=== PATIENT | male | born 1955 | race Caucasian/White ===

== ENCOUNTER 2016-05-12 16:26 | Inpatient (IN) | payer OTHER ==
[2016-05-12] MEDS ORDERED: TYLENOL 325 MG PO STA (17:06)
[2016-05-12] MEDS ORDERED: Zofran 4 MG/2 ML VIAL IV STA (17:06)
[2016-05-12] MEDS ORDERED: Sodium Chloride 0.9% 1000 ML 1,000 ML IV STA (17:06)
[2016-05-12] MEDS ORDERED: TORAdol 30 mg Injection IV ONE (17:11)
[2016-05-12] MEDS ORDERED: DILAUDID 1 MG/ML INJECTION IV ONE (17:11)
[2016-05-12] MEDS ORDERED: DILAUDID 1 MG/ML INJECTION ONE (17:14)
[2016-05-12] MEDS ORDERED: Zofran 4 MG/2 ML VIAL ONE (17:14)
[2016-05-12] MEDS ORDERED: Sodium Chloride 0.9% 1000 ML 1,000 ML ONE (17:14)
[2016-05-12] MEDS ORDERED: TORAdol 30 mg Injection ONE (17:14)
[2016-05-12] MEDS ORDERED: TYLENOL 325 MG ONE (17:14)
--- NOTE | 2016-05-12 17:16 | ERPHSYRPT ---
- History of Present Illness Time Seen by Provider: 05/12/16 16:40 Historian: patient Exam Limitations: no limitations Patient Subjective Stated Complaint: lower back pain since 899 Triage Nursing Assessment: states has had lower back pain since 899. pain and urgency with urination. finished zpack for upper resp s/s on tuesday. skin warm. moist oral membranes. yellow productive cough. Timing/Duration: today Quality: sharpness Abdominal Pain Onset Location: flank Pain Radiation: no radiation Severity of Pain-Max: severe Severity of Pain-Current: severe Modifying Factors: Improves With: nothing Associated Symptoms: other (dysuria) Allergies/Adverse Reactions: No Known Drug Allergies Allergy (Unverified 05/12/16 16:32) Home Medications: Amlodipine Besylate 5 mg [Norvasc 5 mg] 5 mg PO DAILY 08/02/14 [History] Benazepril HCl 20 mg PO DAILY 08/02/14 [History] Ezetimibe 10 mg [Zetia 10 MG] 10 mg PO DAILY 08/02/14 [History] Testosterone Cypionate [Depo-Testosterone] 100 mg IM WEEKLY 08/02/14 [History] Hx Tetanus, Diphtheria Vaccination/Date Given: Yes Hx Influenza Vaccination/Date Given: Yes Hx Pneumococcal Vaccination/Date Given: No Immunizations Up to Date: Yes - Review of Systems Constitutional: No Symptoms Eyes: No Symptoms Ears, Nose, & Throat: No Symptoms Respiratory: No Symptoms Cardiac: No Symptoms Abdominal/Gastrointestinal: No Symptoms Genitourinary Symptoms: Dysuria, Flank Pain Musculoskeletal: No Symptoms Skin: No Symptoms Neurological: No Symptoms Psychological: No Symptoms Endocrine: No Symptoms Hematologic/Lymphatic: No Symptoms - Past Medical History Pertinent Past Medical History: Yes Neurological History: No Pertinent History ENT History: No Pertinent History Cardiac History: High Cholesterol, Hypertension Respiratory History: No Pertinent History, Sleep Apnea Endocrine Medical History: No Pertinent History Musculoskeletal History: No Pertinent History GI Medical History: Polyps History: Other Psycho-Social History: No Pertinent History Male Reproductive Disorders: No Pertinent History Other Medical History: bilateral kidney stones - Past Surgical History Past Surgical History: Yes Neuro Surgical History: No Pertinent History Cardiac: No Pertinent History Respiratory: No Pertinent History Gastrointestinal: Appendectomy, Cholecystectomy, Hernia Repair Genitourinary: No Pertinent History Musculoskeletal: No Pertinent History Male Surgical History: No Pertinent History, Other Other Surgical History: Iguinal, ventral hernia, prostate biopsy - Social History Smoking Status: Never smoker Exposure to second hand smoke: Yes Drug Use: none Patient Lives Alone: No - Nursing Vital Signs Nursing Vital Signs: Initial Vital Signs Temperature 101.2 F Temperature Source Oral Pulse Rate 109 Respiratory Rate 18 Blood Pressure 118/67 Pain Intensity 2 - Physical Exam General Appearance: moderate distress Eye Exam: eyes nml inspection Ears, Nose, Throat Exam: normal ENT inspection, pharynx normal Neck Exam: normal inspection, non-tender, supple, full range of motion Respiratory Exam: normal breath sounds, lungs clear Cardiovascular Exam: regular rate/rhythm, normal heart sounds, normal peripheral pulses Gastrointestinal/Abdomen Exam: soft, normal bowel sounds Back Exam: normal inspection, CVA tenderness (faye) Extremity Exam: normal inspection, normal range of motion, pelvis stable Neurologic Exam: alert, oriented x 3, cooperative Skin Exam: normal color, warm, dry SpO2 Interpretation: normal SpO2: 97 Oxygen Delivery: Room Air - Course Nursing assessment & vital signs reviewed: Yes - CT Exams Abdomen/Pelvis CT Interpretation: Tele-radiologist Report (Solitary nonobstructing right renal microcalculus. No obstructive uropathy.Scattered diverticulosis.Small fatty left inguinal hernia.) Ordered Tests: Active Orders 24 hr Category Date Time Status Clean Catch Urine Specimen STAT Care 05/12/16 17:04 Active IV Insertion STAT Care 05/12/16 17:06 Active Pulse Oximetry (ED) STAT Care 05/12/16 17:06 Active ABDOMEN AND PELVIS W/0 CONTRAS [CT] Stat Exams 05/12/16 17:06 Taken BLOOD CULTURE Stat Lab 05/12/16 16:40 Received CBC W DIFF Stat Lab 05/12/16 17:15 Completed CMP Stat Lab 05/12/16 17:15 Completed Lactic Acid Urgent Lab 05/12/16 17:20 Completed Manual Differential NC Stat Lab 05/12/16 17:15 Completed UA W/ MICROSCOPIC Stat Lab 05/12/16 17:33 Results UA W/RFX UR CULTURE Stat Lab 05/12/16 17:33 Results Medication Summary Generic Name Dose Route Start Last Admin Trade Name Freq PRN Reason Stop Dose Admin Levofloxacin/Dextrose 100 mls @ 100 mls/hr 05/12/16 17:23 05/12/16 17:31 Levaquin 500mg/100ml D5w IV 05/12/16 18:22 100 mls/hr STAT ONE Administration Discontinued Medications Generic Name Dose Route Start Last Admin Trade Name Oksana PRN Reason Stop Dose Admin Acetaminophen 650 mg 05/12/16 17:06 05/12/16 17:17 Tylenol 325 Mg PO 05/12/16 17:07 650 mg STAT STA Administration Acetaminophen Confirm 05/12/16 17:14 Tylenol 325 Mg Administered 05/12/16 17:15 Dose 650 mg .ROUTE .STK-MED ONE Hydromorphone HCl 1 mg 05/12/16 17:11 05/12/16 17:17 Dilaudid 1 Mg/Ml Injection IV 05/12/16 17:12 1 mg STAT ONE Administration Hydromorphone HCl Confirm 05/12/16 17:14 Dilaudid 1 Mg/Ml Injection Administered 05/12/16 17:15 Dose 1 mg .ROUTE .STK-MED ONE Sodium Chloride 1,000 mls @ 999 mls/hr 05/12/16 17:06 05/12/16 17:17 Sodium Chloride 0.9% 1000 Ml IV 05/12/16 18:06 999 mls/hr .Q1H1M STA Administration Sodium Chloride Confirm 05/12/16 17:14 Sodium Chloride 0.9% 1000 Ml Administered 05/12/16 17:15 Dose 1,000 mls @ ud .ROUTE .STK-MED ONE Levofloxacin/Dextrose Confirm 05/12/16 17:30 Levaquin 500mg/100ml D5w Administered 05/12/16 17:31 Dose 100 mls @ ud IV .STK-MED ONE Ketorolac Tromethamine 30 mg 05/12/16 17:11 05/12/16 17:19 Toradol 30 Mg Injection IV 05/12/16 17:12 30 mg STAT ONE Administration Ketorolac Tromethamine Confirm 05/12/16 17:14 Toradol 30 Mg Injection Administered 05/12/16 17:15 Dose 30 mg .ROUTE .STK-MED ONE Ondansetron HCl 4 mg 05/12/16 17:06 05/12/16 17:17 Zofran 4 Mg/2 Ml Vial IV 05/12/16 17:07 4 mg STAT STA Administration Ondansetron HCl Confirm 05/12/16 17:14 Zofran 4 Mg/2 Ml Vial Administered 05/12/16 17:15 Dose 4 mg .ROUTE .STK-MED ONE Lab/Rad Data: Laboratory Result Diagrams 05/12/16 17:15 05/12/16 17:15 Laboratory Results 05/12/16 05/12/16 05/12/16 Range/Units 17:33 17:20 17:15 WBC (4.0-10.5) K/mm3 RBC (4.1-5.6) M/mm3 Hgb (12.5-18.0) gm/dl Hct (42-50) % MCV (78-100) fl MCH (26-32) pg MCHC (32-36) g/dl RDW (11.5-14.0) % Plt Count (150-450) K/mm3 MPV (6-9.5) fl Segmented Neutrophils (36.-66.) % Band Neutrophils (0.0-2.0) % Lymphocytes (Manual) (24-44) % Monocytes (Manual) (0.0-12.0) % Eosinophils (Manual) (0.00-3.0) % Differential Comment Platelet Estimate (NORMAL) Sodium 136 (136-145) mEq/L Potassium 4.6 (3.5-5.1) mEq/L Chloride 100 (98-107) mEq/L Carbon Dioxide 24.1 (21-32) mEq/L Anion Gap 16.1 H (5-15) MEQ/L BUN 27 H (9-20) mg/dL Creatinine 1.49 H (0.55-1.30) mg/dl Estimated GFR 51 ML/MIN Glucose 104 (70-110) MG/DL Lactic Acid 2.2 H (0.4-2.0) Calcium 9.1 (8.5-10.1) mg/dL Total Bilirubin 1.2 H (0.2-1.0) mg/dL AST 14 L (15-37) U/L ALT 41 (12-78) U/L Alkaline Phosphatase 77 (46-116) U/L Serum Total Protein 7.2 (6.4-8.2) gm/dL Albumin 3.8 (3.4-5.0) g/dL Ur Collection Type CLEAN CATCH Urine Color DARK YELLOW (YELLOW) Urine Appearance CLOUDY (CLEAR) Urine pH 5.0 (5-6) Ur Specific [place] 1.025 (1.005-1.025) Urine Protein >=300 (Negative) Urine Glucose (UA) NEGATIVE (NEGATIVE) mg/dL Urine Ketones TRACE (NEGATIVE) Urine Nitrite NEGATIVE (NEGATIVE) Urine Bilirubin SMALL (NEGATIVE) Urine Urobilinogen 0.2 (0-1) mg/dL Urine WBC (Auto) MODERATE (NEGATIVE) Urine RBC (Auto) LARGE (0-5) Miki/ul Urine Microscopic RBC 5-10 (0-2) /HPF Urine Microscopic WBC >100 (0-5) /HPF Ur Epithelial Cells FEW (FEW) /HPF Urine Bacteria MANY (NEGATIVE) /HPF Urine Mucus SLIGHT (NEGATIVE) /HPF Specimen Received 05/12/16 1730 05/12/16 Range/Units 17:15 WBC 12.9 H (4.0-10.5) K/mm3 RBC 4.98 (4.1-5.6) M/mm3 Hgb 14.0 (12.5-18.0) gm/dl Hct 42.6 (42-50) % MCV 85.5 (78-100) fl MCH 28.1 (26-32) pg MCHC 32.9 (32-36) g/dl RDW 14.2 H (11.5-14.0) % Plt Count 249 (150-450) K/mm3 MPV 9.5 (6-9.5) fl Segmented Neutrophils 76 H (36.-66.) % Band Neutrophils 18 H (0.0-2.0) % Lymphocytes (Manual) 4 L (24-44) % Monocytes (Manual) 1 (0.0-12.0) % Eosinophils (Manual) 1 (0.00-3.0) % Differential Comment NORMAL Platelet Estimate NORMAL (NORMAL) Sodium (136-145) mEq/L Potassium (3.5-5.1) mEq/L Chloride (98-107) mEq/L Carbon Dioxide (21-32) mEq/L Anion Gap (5-15) MEQ/L BUN (9-20) mg/dL Creatinine (0.55-1.30) mg/dl Estimated GFR ML/MIN Glucose (70-110) MG/DL Lactic Acid (0.4-2.0) Calcium (8.5-10.1) mg/dL Total Bilirubin (0.2-1.0) mg/dL AST (15-37) U/L ALT (12-78) U/L Alkaline Phosphatase (46-116) U/L Serum Total Protein (6.4-8.2) gm/dL Albumin (3.4-5.0) g/dL Ur Collection Type Urine Color (YELLOW) Urine Appearance (CLEAR) Urine pH (5-6) Ur Specific [place] (1.005-1.025) Urine Protein (Negative) Urine Glucose (UA) (NEGATIVE) mg/dL Urine Ketones (NEGATIVE) Urine Nitrite (NEGATIVE) Urine Bilirubin (NEGATIVE) Urine Urobilinogen (0-1) mg/dL Urine WBC (Auto) (NEGATIVE) Urine RBC (Auto) (0-5) Miki/ul Urine Microscopic RBC (0-2) /HPF Urine Microscopic WBC (0-5) /HPF Ur Epithelial Cells (FEW) /HPF Urine Bacteria (NEGATIVE) /HPF Urine Mucus (NEGATIVE) /HPF Specimen Received - Progress Progress: improved Counseled pt/family regarding: lab results, diagnosis, rad results - Departure Time of Disposition: 18:20 Departure Disposition: In-patient Admission Clinical Impression: Pyelonephritis Sepsis Qualifiers: Sepsis type: sepsis due to unspecified organism Qualified Code(s): A41.9 - Sepsis, unspecified organism Condition: Serious Critical Care Time: Yes Critical Care Time(excluding separately billable procedures): 75-104 minutes
[2016-05-12] MEDS ORDERED: Levaquin 500MG/100ML D5W 100 ML IV ONE ×2 (17:23→17:30)
[2016-05-12 17:29] LABS: Mean Cell Volume 85.5 fl (78-100); Mean Corpuscular Hemoglobin 28.1 pg (26-32); Mean Platelet Volume 9.5 fl (6-9.5); Platelet Count 249 K/mm3 (150-450); Red Blood Count 4.98 M/mm3 (4.1-5.6); Red Cell Distribution Width 14.2 % (11.5-14.0); White Blood Count 12.9 K/mm3 (4.0-10.5)
[2016-05-12 17:48] LABS: COMPLETE URINE MICROSCOPIC? YES; Collection Type CLEAN CATCH; Mucus SLIGHT /HPF (NEGATIVE); WBC >100 /HPF (0-5)
[2016-05-12 17:49] LABS: Bacteria MANY /HPF (NEGATIVE); Epithelial Cells FEW /HPF (FEW)
[2016-05-12 17:52] LABS: ALBUMIN 3.8 g/dL (3.4-5.0); ANION GAP 16.1 MEQ/L (5-15); BILIRUBIN,TOTAL 1.2 mg/dL (0.2-1.0); Carbon Dioxide 24.1 mEq/L (21-32); Potassium 4.6 mEq/L (3.5-5.1); Total Protein 7.2 gm/dL (6.4-8.2)
[2016-05-12 18:07] LABS: BAND 18 % (0.0-2.0); Eosinophil 1 % (0.00-3.0); Platelet Estimate NORMAL (NORMAL); Total Cells Counted 100
[2016-05-12 18:21] LABS: ADD URINE CULTURE? YES (NO)
[2016-05-12] MEDS ORDERED: Zosyn 3.375GM/100 Ml D5W 100 ML IV ONE ×2 (18:27→18:35)
[2016-05-12] MEDS ORDERED: Zofran 4 MG/2 ML VIAL IV PRN (18:28)
[2016-05-12] MEDS: Sodium Chloride 0.9% 1000 ML 1,000 ML IV SCH (20:18)
[2016-05-13] MEDS ORDERED: Phenergan 25 MG INJ IV PRN (00:17)
[2016-05-13] MEDS: Zosyn 3.375GM/100 Ml D5W 100 ML IV SCH ×5 (00:24→23:34)
[2016-05-13] MEDS: MAALOX ES 30 ML UNIT DOSE PO PRN ×2 (00:25→20:18)
[2016-05-13] MEDS ORDERED: DEPO-TESTOSTERONE IM SCH (01:45)
[2016-05-13] MEDS: MORPHINE SULFATE 4 MG INJ IV PRN ×2 (05:56→21:22)
--- NOTE | 2016-05-13 07:57 | PCM.HP ---
History of Present Illness - Chief Complaint Chief Complaint: sepsis History of Present Illness: is a 60 year old male who presented to the ER with acute onset of dysuria, he also had flank pain. He was febrile on arrival as well. - Review of Systems Constitutional: Fever, Chills Respiratory: No Cough, No Short Of Breath Cardiac: No Chest Pain, No Edema, No Syncope Abdominal/Gastrointestinal: No Abdominal Pain, No Nausea, No Vomiting, No Diarrhea Skin: No Rash All Other Systems: Reviewed and Negative Medications & Allergies Home Medications: Home Medication List Amlodipine Besylate 5 mg [Norvasc 5 mg] 5 mg PO HS 08/02/14 [History Confirmed 05/12/16] Benazepril HCl 20 mg PO HS 08/02/14 [History Confirmed 05/12/16] Ezetimibe 10 mg [Zetia 10 MG] 10 mg PO HS 08/02/14 [History Confirmed ] Testosterone Cypionate [Depo-Testosterone] 100 mg IM WEEKLY 08/02/14 [History Confirmed 05/12/16] Allergies/Adverse Reactions: Allergies Allergy/AdvReac Type Severity Reaction Status Date / Time No Known Drug Allergies Allergy Verified 05/12/16 19:00 - Past Medical History Past Medical History: Yes Neurological History: No Pertinent History ENT History: No Pertinent History Cardiac History: High Cholesterol, Hypertension Respiratory History: No Pertinent History, Sleep Apnea Endocrine Medical History: No Pertinent History Musculoskelatal History: No Pertinent History GI Medical History: Polyps History: Other Pyscho-Social History: No Pertinent History Male Reproductive Disorders: No Pertinent History Comment: bilateral kidney stones - Past Surgical History Past Surgical History: Yes Neuro Surgical History: No Pertinent History Cardiac History: No Pertinent History Respiratory Surgery: No Pertinent History GI Surgical History: Appendectomy, Cholecystectomy, Hernia Repair Genitourinary Surgical Hx: No Pertinent History Musculskeletal Surgical Hx: No Pertinent History Male Surgical History: No Pertinent History, Other Other Surgical History: Iguinal, ventral hernia, prostate biopsy - Social History Smoking Status: Never smoker Exposure to second hand smoke: No Alcohol: Occasionally Drug Use: none - Physical Exam Vital Signs: Vital Signs - 24 hr Temp Pulse Resp BP BP Pulse Ox 05/13/16 07:33 98.3 F 94 H 18 118/71 94 L 05/13/16 04:00 98.5 F 93 H 17 113/60 94 L 05/13/16 00:00 98.0 F 90 18 116/63 96 05/12/16 19:51 98.9 F 105 H 97 05/12/16 18:26 97 05/12/16 17:43 109 H 18 118/67 98 05/12/16 17:12 97 05/12/16 16:28 101.2 F 135 H 20 127/65 96 General Appearance: no apparent distress, alert Respiratory Exam: normal breath sounds, lungs clear, No respiratory distress Cardiovascular Exam: regular rate/rhythm, normal heart sounds, normal peripheral pulses Gastrointestinal/Abdomen Exam: soft, normal bowel sounds, No tenderness, No mass Back Exam: CVA tenderness (left cva tender) Extremity Exam: normal inspection, normal range of motion, pelvis stable Skin Exam: normal color, warm, dry, No rash Assessment/Plan (1) Pyelonephritis Current Visit: Yes Status: Acute Assessment & Plan: continue levaquin and IV fluids Code(s): N12 - TUBULO-INTERSTITIAL NEPHRITIS, NOT SPCF ACUTE OR CHRONIC (2) Essential hypertension Current Visit: Yes Status: Acute Assessment & Plan: stable, resume home meds Code(s): I10 - ESSENTIAL (PRIMARY) HYPERTENSION
--- NOTE | 2016-05-13 08:40 | XRAY ---
Indication: Anterior and posterior flank pain. History of stones. Multiple contiguous axial images obtained through the abdomen and pelvis without contrast using renal stone protocol. Comparison: None Lung bases are clear. Heart is not enlarged. Solitary nonobstructing 2 mm calculus in the right kidney. No renal calculus or evidence for obstructive uropathy in the left system. Previous cholecystectomy and appendectomy. Also previous right lower quadrant abdominal hernia repair. Small fatty left inguinal hernia. Calcified splenic granulomas. Noncontrasted stomach and bowel loops appear nonobstructed. Scattered diverticulosis greatest in the sigmoid. No free fluid/air. Remaining liver, pancreas, spleen, adrenal glands, kidneys, ureters, and bladder appear unremarkable for noncontrast exam. Mild aortoiliac calcifications without AAA. Osseous structures intact with mild degenerative changes throughout the spine. Impression: 1. Nonobstructing right renal micro-calculus. 2. Colonic diverticulosis and fatty left inguinal hernia. 3. No acute intra-abdominal/pelvic abnormalities on this noncontrast exam. CT DI is 27.25
[2016-05-13] MEDS: PROTONIX 40 MG IV IV SCH (09:50)
[2016-05-13] MEDS: Levaquin 500MG/100ML D5W 100 ML IV SCH (09:50)
[2016-05-13] MEDS: TYLENOL 325 MG PO PRN ×2 (11:23→17:27)
[2016-05-13] MEDS: NORVASC 5 MG PO SCH (21:22)
[2016-05-13] MEDS: Zetia 10 MG PO SCH (21:23)
[2016-05-13] MEDS: Lotensin 10 MG PO SCH (21:23)
[2016-05-13] MEDS: Sodium Chloride 0.9% 1000 ML 1,000 ML IV SCH (23:10)
[2016-05-14] MEDS: Sodium Chloride 0.9% 1000 ML 1,000 ML IV SCH ×4 (00:37→20:35)
[2016-05-14] MEDS: Zosyn 3.375GM/100 Ml D5W 100 ML IV SCH (05:20)
[2016-05-14 05:36] LABS: Eosinophil % 0.6 % (0.00-5.0); Granulocytes % 84.7 % (36.0-66.0); Lymphocytes % 7.4 % (24.0-44.0); Mean Platelet Volume 9.9 fl (6-9.5); Monocytes % 7.3 % (0.0-12.0); Platelet Count 187 K/mm3 (150-450); Red Blood Count 4.07 M/mm3 (4.1-5.6); Red Cell Distribution Width 14.6 % (11.5-14.0); White Blood Count 14.2 K/mm3 (4.0-10.5)
[2016-05-14 05:59] LABS: ALBUMIN 2.6 g/dL (3.4-5.0); ANION GAP 10.8 MEQ/L (5-15); BILIRUBIN,TOTAL 0.6 mg/dL (0.2-1.0); Carbon Dioxide 26.9 mEq/L (21-32); Potassium 4.4 mEq/L (3.5-5.1); Total Protein 6.2 gm/dL (6.4-8.2)
[2016-05-14] MEDS: MORPHINE SULFATE 4 MG INJ IV PRN ×3 (07:26→17:59)
[2016-05-14] MEDS: MAALOX ES 30 ML UNIT DOSE PO PRN (07:30)
--- NOTE | 2016-05-14 08:29 | PCM.NOTE ---
Date and Time: 05/14/16827 Subjective Assessment: feeling much better, still has pain and required morphine last night x 1 but much less severe. febrile last evening Objective Exam General Appearance: no apparent distress, alert Respiratory Exam: normal breath sounds, lungs clear, No respiratory distress Cardiovascular Exam: regular rate/rhythm, normal heart sounds Gastrointestinal/Abdomen Exam: soft Back Exam: CVA tenderness OBJECTIVE DATA Vital Signs: Vital Signs - 24 hr Temp Pulse Resp BP Pulse Ox 05/14/16 07:39 98.4 F 86 20 110/65 95 05/14/16 04:00 97.9 F 94 H 17 111/59 92 L 05/14/16 00:00 97.8 F 94 H 20 116/67 95 05/13/16 19:26 98.0 F 96 H 17 114/57 93 L 05/13/16 17:27 100.6 F 05/13/16 16:00 100.6 F 96 H 21 143/77 95 05/13/16 12:00 99.4 F 105 H 19 131/65 95 05/13/16 11:23 100.0 F Pain Assessment - Last Documented Pain Intensity 6 Pain Scale Used 0-10 Pain Scale Intake and Output: Intake & Output 05/11/16 05/12/16 05/13/16 05/14/16 11:59 11:59 11:59 11:59 Intake Total 1272 3449 Output Total 800 4200 Balance 472 -751 Weight 99.11 kg 99.337 kg Lab Results: Lab Results-Last 24 Hours 05/14/16 05/14/16 Range/Units 05:20 05:20 WBC 14.2 H (4.0-10.5) K/mm3 RBC 4.07 L (4.1-5.6) M/mm3 Hgb 11.4 L (12.5-18.0) gm/dl Hct 35.8 L (42-50) % MCV 88.0 (78-100) fl MCH 28.0 (26-32) pg MCHC 31.8 L (32-36) g/dl RDW 14.6 H (11.5-14.0) % Plt Count 187 (150-450) K/mm3 MPV 9.9 H (6-9.5) fl Gran % 84.7 H (36.0-66.0) % Lymphocytes % 7.4 L (24.0-44.0) % Monocytes % 7.3 (0.0-12.0) % Eosinophils % 0.6 (0.00-5.0) % Basophils % 0.0 (0.0-0.4) % Basophils # 0 (0-0.4) Sodium 135 L (136-145) mEq/L Potassium 4.4 (3.5-5.1) mEq/L Chloride 102 (98-107) mEq/L Carbon Dioxide 26.9 (21-32) mEq/L Anion Gap 10.8 (5-15) MEQ/L BUN 17 (9-20) mg/dL Creatinine 1.41 H (0.55-1.30) mg/dl Estimated GFR 54 ML/MIN Glucose 120 H (70-110) MG/DL Calcium 8.4 L (8.5-10.1) mg/dL Total Bilirubin 0.6 (0.2-1.0) mg/dL AST 19 (15-37) U/L ALT 33 (12-78) U/L Alkaline Phosphatase 68 (46-116) U/L Serum Total Protein 6.2 L (6.4-8.2) gm/dL Albumin 2.6 L (3.4-5.0) g/dL Multi-Disciplinary Progress Notes: Multi-Disciplinary Progress Notes 05/13/16 10:25 Case Management Note by Eliane Ramirez SPOKE WITH PT STATES LIVES WITH [place]. HAS A CPAP AT NIGHT. INDEPENDENT WITH ALL ADL'S VOICES NO NEEDS AT HOME. WILL CONT TO MONITOR ANY D/C NEEDS. Initialized on 05/13/16 10:25 - END OF NOTE Assessment/Plan (1) Pyelonephritis Current Visit: Yes Status: Acute Assessment & Plan: urine culture grew karimi-sensitive E coli. will d/c the zosyn and continue the levaquin. continue fluids and pain meds. would like to see him fever-free for 24 hours prior to discharge. improving so hopefully will be able to discharge in the next day or two Code(s): N12 - TUBULO-INTERSTITIAL NEPHRITIS, NOT SPCF ACUTE OR CHRONIC (2) Essential hypertension Current Visit: Yes Status: Acute Code(s): I10 - ESSENTIAL (PRIMARY) HYPERTENSION
[2016-05-14] MEDS: Levaquin 500MG/100ML D5W 100 ML IV SCH (09:08)
[2016-05-14] MEDS: PROTONIX 40 MG IV IV SCH (09:09)
[2016-05-14] MEDS ORDERED: PNEUMOVAX 23 IM ONE (10:00)
[2016-05-14] MEDS: NORVASC 5 MG PO SCH (21:20)
[2016-05-14] MEDS: Zetia 10 MG PO SCH (21:20)
[2016-05-14] MEDS: Lotensin 10 MG PO SCH (21:20)
[2016-05-15 05:45] LABS: BASOPHIL % 0.1 % (0.0-0.4); Eosinophil % 2.1 % (0.00-5.0); Granulocytes % 78.8 % (36.0-66.0); Mean Cell Volume 88.3 fl (78-100); Mean Platelet Volume 9.4 fl (6-9.5); Platelet Count 190 K/mm3 (150-450); Red Cell Distribution Width 14.8 % (11.5-14.0); White Blood Count 9.6 K/mm3 (4.0-10.5)
[2016-05-15] MEDS: Sodium Chloride 0.9% 1000 ML 1,000 ML IV SCH (06:13)
[2016-05-15 06:20] LABS: ANION GAP 11.5 MEQ/L (5-15); BLOOD UREA NITROGEN 15 mg/dL (9-20); CHLORIDE 104 mEq/L (98-107); Carbon Dioxide 27.5 mEq/L (21-32); Glucose 108 MG/DL (70-110); Potassium 4.5 mEq/L (3.5-5.1); SODIUM 139 mEq/L (136-145)
[2016-05-15] MEDS: PROTONIX 40 MG IV IV SCH (10:00)
[2016-05-15] MEDS: Levaquin 500MG/100ML D5W 100 ML IV SCH (10:00)
--- NOTE | 2016-05-15 14:49 | PCM.DCORD ---
- Discharge Discharge Date: 05/15/16 Disposition: Home, Self-Care Condition: Good Prescriptions: Levofloxacin 500 mg PO DAILY #7 tablet Medications: Home Medications Amlodipine Besylate 5 mg [Norvasc 5 mg] 5 mg PO 08/02/14 [Confirmed 08/23] Benazepril HCl 20 mg PO 08/02/14 [Confirmed 05/12/16] Ezetimibe 10 mg [Zetia 10 MG] 10 mg PO 08/02/14 [Confirmed 05/12/16] Testosterone Cypionate [Depo-Testosterone] 100 mg IM WEEKLY 08/02/14 [Confirmed 05/12/16] Active Inpatient Medications Acetaminophen (Tylenol 325 Mg) 650 mg PO Q4H PRN PRN PRN Reason: PAIN AND/OR FEVER Stop: 06/11/16 18:27 Last Admin: 05/13/16 17:27 Dose: 650 mg Al Hydrox/Mg Hydrox/Simethicone (Maalox Es 30 Ml Unit Dose) 30 ml PO Q4H PRN PRN PRN Reason: INDIGESTION Stop: 06/12/16 00:17 Last Admin: 05/14/16 07:30 Dose: 30 ml Amlodipine Besylate (Norvasc 5 Mg) 5 mg PO [facility] Stop: 06/12/16 21:59 Last Admin: 05/14/16 21:20 Dose: 5 mg Benazepril HCl (Lotensin 10 Mg) 20 mg PO [facility] Stop: 06/12/16 21:59 Last Admin: 05/14/16 21:20 Dose: 20 mg Ezetimibe (Zetia 10 Mg) 10 mg PO [facility] Stop: 06/12/16 21:59 Last Admin: 05/14/16 21:20 Dose: 10 mg Levofloxacin/Dextrose (Levaquin 500mg/100ml D5w) 100 mls @ 100 mls/hr IV Q24H10 [facility] Stop: 06/12/16 09:59 Last Admin: 05/15/16 10:00 Dose: 100 mls/hr Sodium Chloride (Sodium Chloride 0.9% 1000 Ml) 1,000 mls @ 100 mls/hr IV .Q10H [facility] Stop: 06/11/16 18:29 Last Admin: 05/15/16 06:13 Dose: 100 mls/hr Morphine Sulfate (Morphine Sulfate 4 Mg Inj) 4 mg IV Q3H/PRN PRN PRN Reason: PAIN Stop: 05/17/16 18:27 Last Admin: 05/14/16 17:59 Dose: 4 mg Pantoprazole Sodium (Protonix 40 Mg Iv) 40 mg IV Q24H10 [facility] Stop: 06/12/16 09:59 Last Admin: 05/15/16 10:00 Dose: 40 mg Promethazine HCl (Phenergan 25 Mg Inj) 12.5 mg IV Q6H PRN PRN PRN Reason: NAUSEA/VOMITING Stop: 06/12/16 00:16 Last Admin: 05/13/16 00:24 Dose: 12.5 mg Follow up with: BLOSSOM SINGH MD [Primary Care Provider] -
[2016-05-15 16:10] VITALS: BP 148/82; PULSE 84; O2SAT 98
--- NOTE | 2016-05-18 10:48 | DS ---
DISCHARGE DIAGNOSES: 1) PYELONEPHRITIS. 2) HYPERTENSION. DISCHARGE PHYSICAL EXAMINATION: VITALS: Temperature current 97.8F, temperature max 98.8F, heart rate 81 to 93, respiratory rate 18 to 20, blood pressure 114 to 146 over 56 to 78. Oxygen saturation 93 to 97% on room air, currently 97%. GENERAL: The patient is a pleasant talkative man sitting up in bed in no acute distress. CVS: He has a regular rate and rhythm. No murmurs, gallops or rubs. CHEST: Clear to auscultation bilaterally. No crackles or wheezes. ABDOMEN: Soft with mild suprapubic tenderness. No guarding. No rigidity. Normal bowel sounds. EXTREMITIES: No clubbing, cyanosis or edema. SKIN: Warm, dry and intact. HOSPITAL COURSE: 1) Pyelonephritis. He had a urine culture that grew karimi-sensitive Escherichia coli. He had initially been on Levaquin and Zosyn. The Zosyn was stopped on 05/14/2016. On the day of discharge the patient had been afebrile for 24 hours and was able to take liquids and food by mouth well. White blood cell count at the time of discharge was normal at 9.6 down from 14,200 on admission or shortly after admission. His BMP was within normal limits. He still had a little bit of dysuria when urinating but it was not nearly as bad as when he first came in. I will discharge him with levofloxacin 500 mg p.o. daily for seven more days. 2) Hypertension. He was continued on his home antihypertensive. DISCHARGE MEDICATIONS: He was to resume all of his home medications and take levofloxacin 500 mg p.o. daily for seven more days starting tomorrow and to follow up closely with his primary care doctor, Dr. Hopper, in the clinic. I cared for the patient on the day of his discharge otherwise he has been cared for by Dr. Hopper during his hospitalization.
== END 2016-05-15 16:35 | disposition home or self-care (01) | DRG 690 ==
LOC: ED 16:26 → MED SURG 18:44
PROVIDERS: ADMIT Family Medicine; ATTEND Family Medicine
DX: N12 Tubulo-interstitial nephritis, not specified as acute or chronic (principal); B96.20 Unspecified Escherichia coli [E. coli] as the cause of diseases classified elsewhere; I10 Essential (primary) hypertension
CPT/HCPCS: 36000; 36415; 74176; 80048; 80053; 81000; 83605; 85025; 87040; 87077; 87086; 87186; 90732; 93005; 94660; 94760; 96360; 96365; 96374; 96375; 99284; J1170; J1885; J1956; J2270; J2405; J2543; J2550

== ENCOUNTER 2019-03-01 13:43 | Observation (INO) | payer OTHER ==
[2019-03-01] MEDS ORDERED: BABY ASPIRIN 81 MG CHEW PO ONE (13:48)
[2019-03-01] MEDS ORDERED: Nitrostat 0.4 MG (ED) SL ONE (13:48)
--- NOTE | 2019-03-01 13:55 | ERPHSYRPT ---
- History of Present Illness Time Seen by Provider: 03/01/19 13:47 Historian: patient, family () Exam Limitations: no limitations Physician History: Pt is here with c/c of chest pain and shortness of breath since this morning. Pt describes the pain as a pressure. Pt denies Nausea, palpitations, dizziness, or cold sweat. Pt does have a hx of HTN, and hypercholesterolemia. Pt also has a younger brother with heart problems. Pt is not a smoker or drinker. Timing/Duration: today Activities at Onset: activity Quality: pressure Location: central Chest Pain Radiation: no radiation Severity of Pain-Max: moderate Modifying Factors: Improves With: nothing Associated Symptoms: other (recent cough for 2 weeks), No nausea, No vomiting, No palpitations, No heartburn, No diaphoresis, No dizziness Prior Chest Pain/Cardiac Workup: no prior chest pain Nitro Today/Relief: no nitro taken today Aspirin Treatment Today: no aspirin today Allergies/Adverse Reactions: No Known Drug Allergies Allergy (Verified 05/12/16 19:00) Home Medications: Amlodipine Besylate 5 mg [Norvasc 5 mg] 5 mg PO HS 08/02/14 [History] Benazepril HCl 20 mg PO HS 08/02/14 [History] Ezetimibe 10 mg [Zetia 10 MG] 10 mg PO HS 08/02/14 [History] Hx Tetanus, Diphtheria Vaccination/Date Given: Yes Hx Influenza Vaccination/Date Given: Yes Hx Pneumococcal Vaccination/Date Given: No - Review of Systems Constitutional: No Symptoms Eyes: No Symptoms Ears, Nose, & Throat: No Symptoms Respiratory: Cough (productive with colored sputum), Other Cardiac: Chest Pain, No Palpitations Abdominal/Gastrointestinal: No Symptoms Genitourinary Symptoms: No Symptoms Musculoskeletal: No Symptoms Skin: No Symptoms Neurological: No Symptoms, No Dizziness Psychological: No Symptoms Hematologic/Lymphatic: No Symptoms - Past Medical History Pertinent Past Medical History: Yes Neurological History: No Pertinent History ENT History: No Pertinent History Cardiac History: High Cholesterol, Hypertension Respiratory History: No Pertinent History, Sleep Apnea Endocrine Medical History: No Pertinent History Musculoskeletal History: No Pertinent History GI Medical History: Polyps History: Other Psycho-Social History: No Pertinent History Male Reproductive Disorders: No Pertinent History Other Medical History: bilateral kidney stones - Past Surgical History Past Surgical History: Yes Neuro Surgical History: No Pertinent History Cardiac: No Pertinent History Respiratory: No Pertinent History Gastrointestinal: Appendectomy, Cholecystectomy, Hernia Repair Genitourinary: No Pertinent History Musculoskeletal: No Pertinent History Male Surgical History: No Pertinent History, Other Other Surgical History: Iguinal, ventral hernia, prostate biopsy - Social History Smoking Status: Never smoker Exposure to second hand smoke: No Drug Use: none Patient Lives Alone: No - Nursing Vital Signs Nursing Vital Signs: Initial Vital Signs Temperature 98.2 F 03/01/19 13:46 Pulse Rate 78 03/01/19 13:46 Respiratory Rate 18 03/01/19 13:46 Blood Pressure 180/82 03/01/19 13:46 O2 Sat by Pulse Oximetry 97 03/01/19 13:46 Pain Scale Pain Intensity 0 - Physical Exam General Appearance: mild distress, anxiety, obese Eye Exam: PERRL/EOMI Ears, Nose, Throat Exam: normal ENT inspection (grossly normal) Neck Exam: normal inspection (no bruits) Respiratory Exam: normal breath sounds, lungs clear, airway intact, No chest tenderness, No respiratory distress, No diminished breath sounds, No prolonged expirations, No crackles/rales, No rhonchi, No wheezing, No stridor, No pleural rub Cardiovascular Exam: regular rate/rhythm, normal heart sounds, normal peripheral pulses, No murmur, No friction rub, No gallop, No edema, No pulse deficit Gastrointestinal/Abdomen Exam: soft, normal bowel sounds, No tenderness, No distention, No mass, No guarding, No ecchymosis, No pulsatile mass, No bruit Rectal Exam: not done Back Exam: normal range of motion Extremity Exam: normal inspection Neurologic Exam: alert, oriented x 3, cooperative, 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 Skin Exam: normal color, warm, dry, No rash, No petechiae, No jaundice, No abrasion O2 Delivery: Room Air Ordered Tests: Active Orders 24 hr Category Date Time Status Bedrest with BRP/BSC ROUTINE Activity 03/01/19 17:05 Active Tribunal Member STAT Care 03/01/19 13:49 Active Code Status Order ROUTINE Care 03/01/19 17:05 Active EKG-ER Only STAT Care 03/01/19 13:48 Active IV Care Q6H Care 03/01/19 17:05 Active Implement Chest Pain Pathway ROUTINE Care 03/01/19 17:[address] in Observation ROUTINE Care 03/01/19 17:06 Active Pulse Oximetry (ED) STAT Care 03/01/19 13:48 Active Leodan Ryan ROUTINE Care 03/01/19 17:05 Active Weight,Daily 0600 Care 03/01/19 17:05 Active Cardiac Diet Diet 03/01/19 Breakfast Active CHEST 1 VIEW (PORTABLE) Stat Exams 03/01/19 13:49 Completed CBC W DIFF Stat Lab 03/01/19 13:50 Completed CK-Creatinine Phosphokinase Stat Lab 03/01/19 13:50 Completed CMP Stat Lab 03/01/19 13:50 Completed D-DIMER QUANTITATION Stat Lab 03/01/19 13:50 Completed LIPID PROFILE AM.LAB Lab 03/02/19 04:00 Ordered NT PRO BNP Stat Lab 03/01/19 13:50 Completed TROPONIN Q3H Lab 03/01/19 13:50 Completed TROPONIN Q3H Lab 03/01/19 17:00 Ordered TROPONIN Q3H Lab 03/01/19 20:00 Ordered TROPONIN Q3H Lab 03/01/19 23:00 Ordered TROPONIN Q3H Lab 03/02/19 02:00 Ordered EKG Q8HX2,QAMX3,PRN RT 03/01/19 17:05 Active Pulse Oximetry Q4H RT 03/01/19 17:05 Active Medication Summary Generic Name Dose Route Start Last Admin Trade Name Freq PRN Reason Stop Dose Admin Acetaminophen 650 mg 03/01/19 17:05 Tylenol 325 Mg PO 03/31/19 17:04 Q4H PRN PRN PAIN AND/OR FEVER Al Hydrox/Mg Hydrox/Simethicone 30 ml 03/01/19 17:05 Maalox Es 30 Ml Unit Dose PO 03/31/19 17:04 Q4H PRN PRN INDIGESTION Aspirin 325 mg 03/02/19 10:00 Ecotrin 325 Mg PO 04/01/19 09:59 DAILY JESENIA Famotidine 20 mg 03/01/19 22:00 Pepcid 20 Mg PO 03/31/19 21:59 BID JESENIA Magnesium Hydroxide 30 - 60 ml 03/01/19 17:05 Milk Of Magnesia 30 Ml PO 03/31/19 17:04 QDP PRN CONSTIPATION Nitroglycerin 0.4 mg 03/01/19 14:41 03/01/19 14:55 Nitrostat 0.4 Mg Tablet SL 03/31/19 14:40 0.4 mg Q5MIN PRN MR X 3 PRN Administration CHEST PAIN Ondansetron HCl 4 mg 03/01/19 17:05 Zofran 4 Mg/2 Ml Vial IV 03/31/19 17:04 Q4H PRN PRN NAUSEA/VOMITING Senna/Docusate Sodium 2 udtab 03/01/19 17:05 Senokot-S Tablet PO 03/31/19 17:04 BID PRN PRN CONSTIPATION Discontinued Medications Generic Name Dose Route Start Last Admin Trade Name Freq PRN Reason Stop Dose Admin Aspirin 324 mg 03/01/19 13:48 03/01/19 13:59 Baby Aspirin 81 Mg Chew PO 03/01/19 13:49 324 mg STAT ONE Administration Nitroglycerin 0.4 mg 03/01/19 13:48 03/01/19 13:59 Nitrostat 0.4 Mg (Ed) SL 03/01/19 13:49 0.4 mg STAT ONE Administration Lab/Rad Data: Laboratory Result Diagrams 03/01/19 13:50 03/01/19 13:50 Laboratory Results 03/01/19 03/01/19 03/01/19 Range/Units 13:50 13:50 13:50 WBC (4.0-10.5) K/mm3 RBC (4.1-5.6) M/mm3 Hgb (12.5-18.0) gm/dl Hct (42-50) % MCV (78-100) fl MCH (26-32) pg MCHC (32-36) g/dl RDW (11.5-14.0) % Plt Count (150-450) K/mm3 MPV (6-9.5) fl Gran % (36.0-66.0) % Eos # (Auto) (0-0.5) Absolute Lymphs (auto) (1.0-4.6) Absolute Monos (auto) (0.0-1.3) Lymphocytes % (24.0-44.0) % Monocytes % (0.0-12.0) % Eosinophils % (0.00-5.0) % Basophils % (0.0-0.4) % Absolute Granulocytes (1.4-6.9) Basophils # (0-0.4) D-Dimer 387 (215-500) ng/mL Sodium 142 (137-145) mmol/L Potassium 4.1 (3.5-5.1) mmol/L Chloride 105 (98-107) mmol/L Carbon Dioxide 28 (22-30) mmol/L Anion Gap 13.2 (5-15) MEQ/L BUN 17 (9-20) mg/dL Creatinine 0.88 (0.66-1.25) mg/dL Estimated GFR > 60.0 ML/MIN Glucose 93 (74-106) mg/dL Calcium 9.7 (8.4-10.2) mg/dL Total Bilirubin 0.40 (0.2-1.3) mg/dL AST 55 (17-59) U/L ALT 79 H (0-50) U/L Alkaline Phosphatase 67 (38-126) U/L Creatine Kinase 78 (55-170) U/L Troponin I < 0.012 (0.000-0.034) ng/mL NT-Pro-B Natriuret Pep 43.2 (0-900) pg/mL Serum Total Protein 7.5 (6.3-8.2) g/dL Albumin 4.4 (3.5-5.0) g/dL 03/01/19 Range/Units 13:50 WBC 6.9 (4.0-10.5) K/mm3 RBC 4.56 (4.1-5.6) M/mm3 Hgb 13.6 (12.5-18.0) gm/dl Hct 40.3 L (42-50) % MCV 88.4 (78-100) fl MCH 29.8 (26-32) pg MCHC 33.7 (32-36) g/dl RDW 13.7 (11.5-14.0) % Plt Count 244 (150-450) K/mm3 MPV 9.5 (6-9.5) fl Gran % 71.3 H (36.0-66.0) % Eos # (Auto) 0.22 (0-0.5) Absolute Lymphs (auto) 1.00 (1.0-4.6) Absolute Monos (auto) 0.75 (0.0-1.3) Lymphocytes % 14.5 L (24.0-44.0) % Monocytes % 10.9 (0.0-12.0) % Eosinophils % 3.2 (0.00-5.0) % Basophils % 0.1 (0.0-0.4) % Absolute Granulocytes 4.91 (1.4-6.9) Basophils # 0.01 (0-0.4) D-Dimer (215-500) ng/mL Sodium (137-145) mmol/L Potassium (3.5-5.1) mmol/L Chloride (98-107) mmol/L Carbon Dioxide (22-30) mmol/L Anion Gap (5-15) MEQ/L BUN (9-20) mg/dL Creatinine (0.66-1.25) mg/dL Estimated GFR ML/MIN Glucose (74-106) mg/dL Calcium (8.4-10.2) mg/dL Total Bilirubin (0.2-1.3) mg/dL AST (17-59) U/L ALT (0-50) U/L Alkaline Phosphatase (38-126) U/L Creatine Kinase (55-170) U/L Troponin I (0.000-0.034) ng/mL NT-Pro-B Natriuret Pep (0-900) pg/mL Serum Total Protein (6.3-8.2) g/dL Albumin (3.5-5.0) g/dL - Departure Departure Disposition: Observation Clinical Impression: Chest pain at rest, Uncontrolled hypertension Condition: Stable Critical Care Time: No Referrals: BLOSSOM SINGH MD [Primary Care Provider] - Plan of Treatment: admit for observation to the Care of Dr. Singh
[2019-03-01 14:11] LABS: Absolute Neutrophil Ct (ANC) 4.91 (1.4-6.9); BASOPHIL % 0.1 % (0.0-0.4); Basophil (Absolute #) 0.01 (0-0.4); Eosinophil % 3.2 % (0.00-5.0); Eosinophil (Absolute #) 0.22 (0-0.5); Hematocrit 40.3 % (42-50); Hemoglobin 13.6 gm/dl (12.5-18.0); Lymphocytes % 14.5 % (24.0-44.0); Mean Cell Volume 88.4 fl (78-100); Mean Corpuscular Hemoglobin 29.8 pg (26-32); Mean Corpuscular Hgb Concent. 33.7 g/dl (32-36); Mean Platelet Volume 9.5 fl (6-9.5); Monocyte (Absolute #) 0.75 (0.0-1.3); Monocytes % 10.9 % (0.0-12.0); Neutrophil % 71.3 % (36.0-66.0); Platelet Count 244 K/mm3 (150-450); Red Blood Count 4.56 M/mm3 (4.1-5.6); Red Cell Distribution Width 13.7 % (11.5-14.0); White Blood Count 6.9 K/mm3 (4.0-10.5)
--- NOTE | 2019-03-01 14:17 | XRAY ---
Indication: Chest pain and short of breath. Comparison: January 14, 2018. Portable chest again demonstrates normal heart and lungs. Bony thorax intact again with mild degenerative changes. No new/acute findings.
[2019-03-01 14:32] LABS: ALBUMIN 4.4 g/dL (3.5-5.0); ALKALINE PHOSPHATASE 67 U/L (38-126); ANION GAP 13.2 MEQ/L (5-15); BLOOD UREA NITROGEN 17 mg/dL (9-20); CHLORIDE 105 mmol/L (98-107); CK-Creatinine Phosphokinase 78 U/L (55-170); Calcium 9.7 mg/dL (8.4-10.2); Carbon Dioxide 28 mmol/L (22-30); Creatinine 1 0.88 mg/dL (0.66-1.25); Glucose 93 mg/dL (74-106); NT PRO BNP 43.2 pg/mL (0-900); Potassium 4.1 mmol/L (3.5-5.1); SGOT/AST 55 U/L (17-59); SGPT/ALT 79 U/L (0-50); SODIUM 142 mmol/L (137-145); Total Protein 7.5 g/dL (6.3-8.2)
[2019-03-01] MEDS ORDERED: Nitrostat 0.4 MG Tablet SL PRN (14:41)
[2019-03-01] MEDS ORDERED: TYLENOL 325 MG PO PRN (17:05)
[2019-03-01] MEDS ORDERED: MILK OF MAGNESIA 30 ML PO PRN (17:05)
[2019-03-01] MEDS ORDERED: Senokot-S Tablet PO PRN (17:05)
[2019-03-01] MEDS ORDERED: MAALOX ES 30 ML UNIT DOSE PO PRN (17:05)
[2019-03-01] MEDS ORDERED: Zofran 4 MG/2 ML VIAL IV PRN (17:05)
[2019-03-01] MEDS ORDERED: Tums EX 750 MG PO PRN (18:06)
[2019-03-01] MEDS ORDERED: NORVASC 5 MG PO SCH (22:00)
[2019-03-01] MEDS ORDERED: Pepcid 20 MG PO SCH (22:00)
[2019-03-01] MEDS ORDERED: Lotensin 10 MG PO SCH (22:00)
[2019-03-01] MEDS ORDERED: Zetia 10 MG PO SCH (22:00)
[2019-03-02 06:21] LABS: Risk Ratio 6.1
[2019-03-02 08:03] VITALS: O2SAT 95
--- NOTE | 2019-03-02 08:30 | PCM.SSS ---
History of Present Illness - Chief Complaint Chief Complaint: Chest Pain, dyspnea with exertion History of Present Illness: is a 63 year old male who presented to the ER yesterday with acute onset of squeezing pain in the left chest, occurred while he was working. He has no known cardiac history, has a strong family history of CAD and multiple risk factors. He also notes shortness of breath with exertion worsening over the last 3 months. his pain resolved with 2 nitro in the ER and has not recurred since admission. - Review of Systems Constitutional: No Fever, No Chills Eyes: No Symptoms Cardiac: Chest Pain, No Palpitations, No Syncope Abdominal/Gastrointestinal: No Abdominal Pain, No Nausea, No Vomiting, No Diarrhea Genitourinary Symptoms: No Dysuria Skin: No Rash All Other Systems: Reviewed and Negative Medications & Allergies Home Medications: Home Medication List Amlodipine Besylate 5 mg [Norvasc 5 mg] 5 mg PO HS 08/02/14 [History Confirmed 03/01/19] Benazepril HCl 20 mg PO HS 08/02/14 [History Confirmed 03/01/19] Ezetimibe 10 mg [Zetia 10 MG] 10 mg PO HS 08/02/14 [History Confirmed ] Calcium Carbonate 750 mg [Tums EX 750 MG] 750 mg PO Q4H PRN 03/01/19 [ History Confirmed 03/01/19] Aspirin EC 81 mg [Ecotrin 81 mg] 81 mg PO DAILY #30 tablet 03/02/19 [Rx] Nitroglycerin 0.4 mg Tablet [Nitrostat 0.4 MG Tablet] 0.4 mg SL UD #25 bottle 03/02/19 [Rx] Allergies/Adverse Reactions: Allergies Allergy/AdvReac Type Severity Reaction Status Date / Time No Known Drug Allergies Allergy Verified 05/12/16 19:00 - Past Medical History Past Medical History: Yes Neurological History: No Pertinent History ENT History: No Pertinent History Cardiac History: High Cholesterol, Hypertension Respiratory History: Sleep Apnea Endocrine Medical History: No Pertinent History Musculoskelatal History: No Pertinent History GI Medical History: Polyps History: Other Pyscho-Social History: No Pertinent History Male Reproductive Disorders: No Pertinent History Comment: bilateral kidney stones - Past Surgical History Past Surgical History: Yes Neuro Surgical History: No Pertinent History Cardiac History: No Pertinent History Respiratory Surgery: No Pertinent History GI Surgical History: Appendectomy, Cholecystectomy, Hernia Repair Genitourinary Surgical Hx: No Pertinent History Musculskeletal Surgical Hx: No Pertinent History Male Surgical History: Other Other Surgical History: Iguinal, ventral hernia, prostate biopsy - Social History Smoking Status: Former smoker Exposure to second hand smoke: No Alcohol: Occasionally Drug Use: none - Physical Exam Vital Signs: Vital Signs - 24 hr Temp Pulse Resp BP BP Pulse Ox 03/02/19 08:00 98.3 F 67 18 149/71 95 03/02/19 03:56 98.2 F 70 17 131/77 94 L 03/02/19 03:50 98.2 F 70 17 131/77 94 L 03/02/19 00:00 97.8 F 71 17 128/93 95 03/01/19 20:00 98.3 F 57 L 20 177/86 94 L 03/01/19 18:06 98.8 F 68 18 162/81 94 L 03/01/19 16:44 65 23 116/62 97 03/01/19 15:50 60 18 116/62 97 03/01/19 15:40 77 16 101/55 98 03/01/19 14:55 70 120/57 03/01/19 14:50 72 16 120/57 98 03/01/19 14:48 72 16 123/57 98 03/01/19 13:48 98 03/01/19 13:46 98.2 F 78 18 180/82 97 General Appearance: no apparent distress, alert Neurologic Exam: alert, oriented x 3, cooperative Respiratory Exam: normal breath sounds, lungs clear, No respiratory distress Cardiovascular Exam: regular rate/rhythm, normal heart sounds, normal peripheral pulses Gastrointestinal/Abdomen Exam: soft, normal bowel sounds, No tenderness, No mass Extremity Exam: normal inspection, normal range of motion, pelvis stable Skin Exam: normal color, warm, dry, No rash Results - Labs Lab/Micro Results: Lab Results-Last 24 Hours 03/01/19 03/01/19 03/01/19 Range/Units 13:50 13:50 13:50 WBC 6.9 (4.0-10.5) K/mm3 RBC 4.56 (4.1-5.6) M/mm3 Hgb 13.6 (12.5-18.0) gm/dl Hct 40.3 L (42-50) % MCV 88.4 (78-100) fl MCH 29.8 (26-32) pg MCHC 33.7 (32-36) g/dl RDW 13.7 (11.5-14.0) % Plt Count 244 (150-450) K/mm3 MPV 9.5 (6-9.5) fl Gran % 71.3 H (36.0-66.0) % Eos # (Auto) 0.22 (0-0.5) Absolute Lymphs (auto) 1.00 (1.0-4.6) Absolute Monos (auto) 0.75 (0.0-1.3) Lymphocytes % 14.5 L (24.0-44.0) % Monocytes % 10.9 (0.0-12.0) % Eosinophils % 3.2 (0.00-5.0) % Basophils % 0.1 (0.0-0.4) % Absolute Granulocytes 4.91 (1.4-6.9) Basophils # 0.01 (0-0.4) D-Dimer 387 (215-500) ng/mL Sodium 142 (137-145) mmol/L Potassium 4.1 (3.5-5.1) mmol/L Chloride 105 (98-107) mmol/L Carbon Dioxide 28 (22-30) mmol/L Anion Gap 13.2 (5-15) MEQ/L BUN 17 (9-20) mg/dL Creatinine 0.88 (0.66-1.25) mg/dL Estimated GFR > 60.0 ML/MIN Glucose 93 (74-106) mg/dL Calcium 9.7 (8.4-10.2) mg/dL Total Bilirubin 0.40 (0.2-1.3) mg/dL AST 55 (17-59) U/L ALT 79 H (0-50) U/L Alkaline Phosphatase 67 (38-126) U/L Creatine Kinase 78 (55-170) U/L Troponin I (0.000-0.034) ng/mL NT-Pro-B Natriuret Pep 43.2 (0-900) pg/mL Serum Total Protein 7.5 (6.3-8.2) g/dL Albumin 4.4 (3.5-5.0) g/dL Triglycerides (30-150) mg/dL Cholesterol (50-200) mg/dL LDL Cholesterol (30-100) mg/dL HDL Cholesterol (40-60) mg/dL Heart Disease Risk Ratio 03/01/19 03/01/19 03/01/19 Range/Units 13:50 17:00 20:15 WBC (4.0-10.5) K/mm3 RBC (4.1-5.6) M/mm3 Hgb (12.5-18.0) gm/dl Hct (42-50) % MCV (78-100) fl MCH (26-32) pg MCHC (32-36) g/dl RDW (11.5-14.0) % Plt Count (150-450) K/mm3 MPV (6-9.5) fl Gran % (36.0-66.0) % Eos # (Auto) (0-0.5) Absolute Lymphs (auto) (1.0-4.6) Absolute Monos (auto) (0.0-1.3) Lymphocytes % (24.0-44.0) % Monocytes % (0.0-12.0) % Eosinophils % (0.00-5.0) % Basophils % (0.0-0.4) % Absolute Granulocytes (1.4-6.9) Basophils # (0-0.4) D-Dimer (215-500) ng/mL Sodium (137-145) mmol/L Potassium (3.5-5.1) mmol/L Chloride (98-107) mmol/L Carbon Dioxide (22-30) mmol/L Anion Gap (5-15) MEQ/L BUN (9-20) mg/dL Creatinine (0.66-1.25) mg/dL Estimated GFR ML/MIN Glucose (74-106) mg/dL Calcium (8.4-10.2) mg/dL Total Bilirubin (0.2-1.3) mg/dL AST (17-59) U/L ALT (0-50) U/L Alkaline Phosphatase (38-126) U/L Creatine Kinase (55-170) U/L Troponin I < 0.012 < 0.012 < 0.012 (0.000-0.034) ng/mL NT-Pro-B Natriuret Pep (0-900) pg/mL Serum Total Protein (6.3-8.2) g/dL Albumin (3.5-5.0) g/dL Triglycerides (30-150) mg/dL Cholesterol (50-200) mg/dL LDL Cholesterol (30-100) mg/dL HDL Cholesterol (40-60) mg/dL Heart Disease Risk Ratio 03/01/19 03/02/19 03/02/19 Range/Units 23:15 02:00 04:00 WBC (4.0-10.5) K/mm3 RBC (4.1-5.6) M/mm3 Hgb (12.5-18.0) gm/dl Hct (42-50) % MCV (78-100) fl MCH (26-32) pg MCHC (32-36) g/dl RDW (11.5-14.0) % Plt Count (150-450) K/mm3 MPV (6-9.5) fl Gran % (36.0-66.0) % Eos # (Auto) (0-0.5) Absolute Lymphs (auto) (1.0-4.6) Absolute Monos (auto) (0.0-1.3) Lymphocytes % (24.0-44.0) % Monocytes % (0.0-12.0) % Eosinophils % (0.00-5.0) % Basophils % (0.0-0.4) % Absolute Granulocytes (1.4-6.9) Basophils # (0-0.4) D-Dimer (215-500) ng/mL Sodium (137-145) mmol/L Potassium (3.5-5.1) mmol/L Chloride (98-107) mmol/L Carbon Dioxide (22-30) mmol/L Anion Gap (5-15) MEQ/L BUN (9-20) mg/dL Creatinine (0.66-1.25) mg/dL Estimated GFR ML/MIN Glucose (74-106) mg/dL Calcium (8.4-10.2) mg/dL Total Bilirubin (0.2-1.3) mg/dL AST (17-59) U/L ALT (0-50) U/L Alkaline Phosphatase (38-126) U/L Creatine Kinase (55-170) U/L Troponin I < 0.012 < 0.012 (0.000-0.034) ng/mL NT-Pro-B Natriuret Pep (0-900) pg/mL Serum Total Protein (6.3-8.2) g/dL Albumin (3.5-5.0) g/dL Triglycerides 160 H (30-150) mg/dL Cholesterol 199 (50-200) mg/dL LDL Cholesterol 135 H (30-100) mg/dL HDL Cholesterol 33 L (40-60) mg/dL Heart Disease Risk Ratio 6.1 - Radiology Impressions Radiology Exams & Impressions: Radiology Procedures Category Date Time Status CHEST 1 VIEW (PORTABLE) Stat Exams 03/01/19 13:49 Completed - Other Procedures and Tests Respiratory Therapy 03/01/19 21:57 BiPap/CPAP ROUTINE 03/02/19 08:24 STRESS TEST [Schedule Outpt Stress Test] Routine 03/03/19 05:00 EKG DAILY 03/04/19 05:00 EKG DAILY Assessment/Plan (1) Chest pain Current Visit: Yes Status: Acute Assessment & Plan: DC ruled out, add aspirin 81mg daily and give nitro prn. needs cardiology evaluation, requests cardiology in [place] Code(s): R07.9 - CHEST PAIN, UNSPECIFIED (2) Exertional dyspnea Current Visit: Yes Status: Acute Code(s): R06.09 - OTHER FORMS OF DYSPNEA (3) Essential hypertension Current Visit: No Status: Acute Code(s): I10 - ESSENTIAL (PRIMARY) HYPERTENSION Hospital Summary - Vitals & Intake/Output Vital Signs: Vital Signs Temperature 98.3 F 03/02/19 08:00 Pulse Rate 67 03/02/19 08:00 Respiratory Rate 18 03/02/19 08:00 Blood Pressure 149/71 03/02/19 08:00 O2 Sat by Pulse Oximetry 95 03/02/19 08:00 Intake & Output: Intake & Output 02/27/19 02/28/19 03/01/19 03/02/19 11:59 11:59 11:59 11:59 Intake Total 1939 Balance 1939 Weight 105.5 kg - Lab Result Diagrams: 03/01/19 13:50 03/01/19 13:50 Lab Results-Last 24 Hrs: Lab Results-Last 24 Hours 03/01/19 03/01/19 03/01/19 Range/Units 13:50 13:50 13:50 WBC 6.9 (4.0-10.5) K/mm3 RBC 4.56 (4.1-5.6) M/mm3 Hgb 13.6 (12.5-18.0) gm/dl Hct 40.3 L (42-50) % MCV 88.4 (78-100) fl MCH 29.8 (26-32) pg MCHC 33.7 (32-36) g/dl RDW 13.7 (11.5-14.0) % Plt Count 244 (150-450) K/mm3 MPV 9.5 (6-9.5) fl Gran % 71.3 H (36.0-66.0) % Eos # (Auto) 0.22 (0-0.5) Absolute Lymphs (auto) 1.00 (1.0-4.6) Absolute Monos (auto) 0.75 (0.0-1.3) Lymphocytes % 14.5 L (24.0-44.0) % Monocytes % 10.9 (0.0-12.0) % Eosinophils % 3.2 (0.00-5.0) % Basophils % 0.1 (0.0-0.4) % Absolute Granulocytes 4.91 (1.4-6.9) Basophils # 0.01 (0-0.4) D-Dimer 387 (215-500) ng/mL Sodium 142 (137-145) mmol/L Potassium 4.1 (3.5-5.1) mmol/L Chloride 105 (98-107) mmol/L Carbon Dioxide 28 (22-30) mmol/L Anion Gap 13.2 (5-15) MEQ/L BUN 17 (9-20) mg/dL Creatinine 0.88 (0.66-1.25) mg/dL Estimated GFR > 60.0 ML/MIN Glucose 93 (74-106) mg/dL Calcium 9.7 (8.4-10.2) mg/dL Total Bilirubin 0.40 (0.2-1.3) mg/dL AST 55 (17-59) U/L ALT 79 H (0-50) U/L Alkaline Phosphatase 67 (38-126) U/L Creatine Kinase 78 (55-170) U/L Troponin I (0.000-0.034) ng/mL NT-Pro-B Natriuret Pep 43.2 (0-900) pg/mL Serum Total Protein 7.5 (6.3-8.2) g/dL Albumin 4.4 (3.5-5.0) g/dL Triglycerides (30-150) mg/dL Cholesterol (50-200) mg/dL LDL Cholesterol (30-100) mg/dL HDL Cholesterol (40-60) mg/dL Heart Disease Risk Ratio 03/01/19 03/01/19 03/01/19 Range/Units 13:50 17:00 20:15 WBC (4.0-10.5) K/mm3 RBC (4.1-5.6) M/mm3 Hgb (12.5-18.0) gm/dl Hct (42-50) % MCV (78-100) fl MCH (26-32) pg MCHC (32-36) g/dl RDW (11.5-14.0) % Plt Count (150-450) K/mm3 MPV (6-9.5) fl Gran % (36.0-66.0) % Eos # (Auto) (0-0.5) Absolute Lymphs (auto) (1.0-4.6) Absolute Monos (auto) (0.0-1.3) Lymphocytes % (24.0-44.0) % Monocytes % (0.0-12.0) % Eosinophils % (0.00-5.0) % Basophils % (0.0-0.4) % Absolute Granulocytes (1.4-6.9) Basophils # (0-0.4) D-Dimer (215-500) ng/mL Sodium (137-145) mmol/L Potassium (3.5-5.1) mmol/L Chloride (98-107) mmol/L Carbon Dioxide (22-30) mmol/L Anion Gap (5-15) MEQ/L BUN (9-20) mg/dL Creatinine (0.66-1.25) mg/dL Estimated GFR ML/MIN Glucose (74-106) mg/dL Calcium (8.4-10.2) mg/dL Total Bilirubin (0.2-1.3) mg/dL AST (17-59) U/L ALT (0-50) U/L Alkaline Phosphatase (38-126) U/L Creatine Kinase (55-170) U/L Troponin I < 0.012 < 0.012 < 0.012 (0.000-0.034) ng/mL NT-Pro-B Natriuret Pep (0-900) pg/mL Serum Total Protein (6.3-8.2) g/dL Albumin (3.5-5.0) g/dL Triglycerides (30-150) mg/dL Cholesterol (50-200) mg/dL LDL Cholesterol (30-100) mg/dL HDL Cholesterol (40-60) mg/dL Heart Disease Risk Ratio 03/01/19 03/02/19 03/02/19 Range/Units 23:15 02:00 04:00 WBC (4.0-10.5) K/mm3 RBC (4.1-5.6) M/mm3 Hgb (12.5-18.0) gm/dl Hct (42-50) % MCV (78-100) fl MCH (26-32) pg MCHC (32-36) g/dl RDW (11.5-14.0) % Plt Count (150-450) K/mm3 MPV (6-9.5) fl Gran % (36.0-66.0) % Eos # (Auto) (0-0.5) Absolute Lymphs (auto) (1.0-4.6) Absolute Monos (auto) (0.0-1.3) Lymphocytes % (24.0-44.0) % Monocytes % (0.0-12.0) % Eosinophils % (0.00-5.0) % Basophils % (0.0-0.4) % Absolute Granulocytes (1.4-6.9) Basophils # (0-0.4) D-Dimer (215-500) ng/mL Sodium (137-145) mmol/L Potassium (3.5-5.1) mmol/L Chloride (98-107) mmol/L Carbon Dioxide (22-30) mmol/L Anion Gap (5-15) MEQ/L BUN (9-20) mg/dL Creatinine (0.66-1.25) mg/dL Estimated GFR ML/MIN Glucose (74-106) mg/dL Calcium (8.4-10.2) mg/dL Total Bilirubin (0.2-1.3) mg/dL AST (17-59) U/L ALT (0-50) U/L Alkaline Phosphatase (38-126) U/L Creatine Kinase (55-170) U/L Troponin I < 0.012 < 0.012 (0.000-0.034) ng/mL NT-Pro-B Natriuret Pep (0-900) pg/mL Serum Total Protein (6.3-8.2) g/dL Albumin (3.5-5.0) g/dL Triglycerides 160 H (30-150) mg/dL Cholesterol 199 (50-200) mg/dL LDL Cholesterol 135 H (30-100) mg/dL HDL Cholesterol 33 L (40-60) mg/dL Heart Disease Risk Ratio 6.1 - Radiology Exams Ordered Rad Exams-Entire Visit: Radiology Procedures Category Date Time Status CHEST 1 VIEW (PORTABLE) Stat Exams 03/01/19 13:49 Completed - Procedures and Test Procedures and Tests throughout Hospitalization: Therapy Orders & Screens 03/01/19 17:05 EKG Q8HX2,QAMX3,PRN Comment: 03/01/19 21:47 EKG ROUTINE Comment: Diagnosis: Chest Pain Rule Out 03/01/19 21:57 BiPap/CPAP ROUTINE Comment: CPAP AT NIGHT OF 14 PER PT'S HOME USE Diagnosis: Chest Pain Rule Out 03/02/19 05:00 EKG DAILY Comment: Diagnosis: Chest Pain Rule Out 03/02/19 08:24 STRESS TEST [Schedule Outpt Stress Test] Routine Comment: Diagnosis: Chest Pain, dyspnea with exertion Schedule Outpt Stress Test: Cardiolyte Stress Test Cardiolite Stress Test: Cardiolite Treadmill 03/03/19 05:00 EKG DAILY Comment: Diagnosis: Chest Pain Rule Out 03/04/19 05:00 EKG DAILY Comment: Diagnosis: Chest Pain Rule Out - Discharge Disposition: Home, Self-Care Condition: Stable Prescriptions: New Aspirin EC 81 mg [Ecotrin 81 mg] 81 mg PO DAILY #30 tablet Nitroglycerin 0.4 mg Tablet [Nitrostat 0.4 MG Tablet] 0.4 mg SL UD #25 bottle Continue Amlodipine Besylate 5 mg [Norvasc 5 mg] 5 mg PO HS Benazepril HCl 20 mg PO HS Ezetimibe 10 mg [Zetia 10 MG] 10 mg PO HS Calcium Carbonate 750 mg [Tums EX 750 MG] 750 mg PO Q4H PRN PRN Reason: Indigestion Instructions: Chest Pain (DC) Additional Instructions: please schedule with Dr Michael Marcum in [place] for cardiology evaluation upon discharge, schedule for treadmill cardiolite as outpatient. Follow up with: BLOSSOM SINGH MD [Primary Care Provider] - 1 Week
[2019-03-02] MEDS ORDERED: Ecotrin 325 MG PO SCH (10:00)
[2019-03-02 12:10] VITALS: BP 171/87; PULSE 69
== END 2019-03-02 12:30 | disposition home or self-care (01) ==
LOC: ED 13:43 → MED SURG 17:50
PROVIDERS: ADMIT Family Medicine; ATTEND Family Medicine
DX: R07.9 Chest pain, unspecified (principal); R06.09 Other forms of dyspnea; I10 Essential (primary) hypertension; Z79.899 Other long term (current) drug therapy
CPT/HCPCS: 36000; 36415; 71045; 80053; 80061; 82550; 83721; 83880; 84484; 85025; 85379; 93005; 93041; 93268; 94660; 94760; 99285; G0378; A9270-GY

== ENCOUNTER 2021-06-13 12:02 | Emergency (ER) | payer MEDICARE, OTHER ==
--- NOTE | 2021-06-13 12:09 | ERPHSYRPT ---
- History of Present Illness Time Seen by Provider: 06/13/21 12:06 Source: patient Exam Limitations: no limitations Physician History: This is a 65-year-old white male who was walking outside and slipped and fell onto his ribs on the left side and immediately was having trouble breathing. He did not have any chest pain prior to falling. He has no complaints of any head neck or extremity pain. He fell on the left side ribs. Occurred: just prior to arrival Reason for Fall: slipped (Slipped on ice outside) Injuries/Pain Location: chest (Left side chest/ribs) Loss of Consciousness: no loss of consciousness Quality: aching Severity of Pain-Max: moderate Severity of Pain-Current: moderate Associated Symptoms (Fall): denies symptoms Allergies/Adverse Reactions: No Known Drug Allergies Allergy (Verified 06/13/21 12:10) Home Medications: Benazepril HCl 20 mg PO HS 08/02/14 [History] Ezetimibe 10 mg [Zetia 10 MG] 10 mg PO HS 08/02/14 [History] Calcium Carbonate 750 mg [Tums EX 750 MG] 750 mg PO Q4H PRN 03/01/19 [History] Hx Tetanus, Diphtheria Vaccination/Date Given: Yes Hx Influenza Vaccination/Date Given: Yes Hx Pneumococcal Vaccination/Date Given: No Travel Risk - International Travel Have you traveled outside of the country in past 3 weeks: No - Coronavirus Screening Are you exhibiting any of the following symptoms?: No Close contact with a COVID-19 positive Pt in past 14-21 Days: No - Review of Systems Constitutional: No Symptoms Eyes: No Symptoms Ears, Nose, & Throat: No Symptoms Respiratory: Dyspnea Cardiac: No Symptoms Abdominal/Gastrointestinal: No Symptoms Genitourinary Symptoms: No Symptoms Musculoskeletal: Fall, Injury (Left side ribs) Skin: No Symptoms Neurological: No Symptoms Psychological: No Symptoms Endocrine: No Symptoms Hematologic/Lymphatic: No Symptoms Immunological/Allergic: No Symptoms All Other Systems: Reviewed and Negative - Past Medical History Pertinent Past Medical History: Yes Neurological History: No Pertinent History ENT History: No Pertinent History Cardiac History: High Cholesterol, Hypertension Respiratory History: Sleep Apnea Endocrine Medical History: No Pertinent History Musculoskeletal History: Arthritis GI Medical History: Polyps History: Other Psycho-Social History: No Pertinent History Male Reproductive Disorders: No Pertinent History Other Medical History: bilateral kidney stones - Past Surgical History Past Surgical History: Yes Neuro Surgical History: No Pertinent History Cardiac: No Pertinent History Respiratory: No Pertinent History Gastrointestinal: Appendectomy, Cholecystectomy, Hernia Repair Genitourinary: No Pertinent History Musculoskeletal: No Pertinent History Male Surgical History: Other Other Surgical History: Iguinal, ventral hernia, prostate biopsy - Social History Smoking Status: Former smoker Exposure to second hand smoke: No Drug Use: none Patient Lives Alone: No - Nursing Vital Signs Nursing Vital Signs: Initial Vital Signs Temperature 97.2 F 06/13/21 12:06 Pulse Rate 100 H 06/13/21 12:06 Respiratory Rate 22 06/13/21 12:06 Blood Pressure 192/103 06/13/21 12:06 O2 Sat by Pulse Oximetry 98 06/13/21 12:06 Pain Scale Pain Intensity 6 - Seth Coma Score Best Eye Response (Seth): (4) open spontaneously Best Verbal Response (Seth): (5) oriented Best Motor Response (Seth): (6) obeys commands Seth Total: 15 - Physical Exam General Appearance: mild distress, alert, anxiety Head Injury: no evidence of injury Eye Exam: PERRL/EOMI, eyes nml inspection ENT Exam: airway nml, nml ext.inspection, No evidence of ENT injury Neck Exam: supple, trachea midline, full range of motion, normal alignment, normal inspection Respiratory/Chest Exam: chest tenderness (Left side ribs anterior and posterior lateral), normal breath sounds, No respiratory distress, No ecchymosis, No crepitus Cardiovascular Exam: normal heart sounds, regular rate/rhythm Gastrointestinal Exam: soft, normal bowel sounds, No tenderness Rectal Exam: not done Back Exam: normal inspection, normal range of motion, No CVA tenderness, No medhat tebral tenderness Extremity Exam: normal inspection, normal range of motion, pelvis stable Neurologic Exam: alert, oriented x 3, cooperative, mixer machine feeder II-XII nml as tested, normal mood/affect, nml cerebellar function, nml station & gait, sensation nml Skin Exam: normal color, warm, dry SpO2 Interpretation: normal O2 Delivery: Room Air - Course Nursing assessment & vital signs reviewed: Yes Ordered Tests: Active Orders 24 hr Category Date Time Status CHEST 2 VIEWS (PA AND LAT) Stat Exams 06/13/21 12:10 Taken RIBS UNILATERAL Stat Exams 06/13/21 12:10 Taken Medication Summary Discontinued Medications Generic Name Dose Route Start Last Admin Trade Name Oksana PRN Reason Stop Dose Admin Hydromorphone HCl 1 mg 06/13/21 12:10 06/13/21 12:32 Hydromorphone 1 Mg/1ml Inj 1 Mg/Ml Syringe IM 06/13/21 12:11 1 mg STAT ONE Administration Hydromorphone HCl Confirm 06/13/21 12:22 Hydromorphone 1 Mg/1ml Inj 1 Mg/Ml Syringe Administered 06/13/21 12:23 Dose 1 mg .ROUTE .STK-MED ONE Lorazepam 0.5 mg 06/13/21 12:11 06/13/21 12:31 Lorazepam 2 Mg/1 Ml 2 Mg Vial IM 06/13/21 12:12 0.5 mg STAT ONE Administration Lorazepam Confirm 06/13/21 12:21 Lorazepam 2 Mg/1 Ml 2 Mg Vial Administered 06/13/21 12:22 Dose 2 mg .ROUTE .STK-MED ONE Ondansetron HCl 4 mg 06/13/21 12:11 06/13/21 12:31 Zofran 4 Mg/Udtablet Orally Disintegrating PO 06/13/21 12:12 4 mg STAT ONE Administration Ondansetron HCl Confirm 06/13/21 12:21 Zofran 4 Mg/Udtablet Orally Disintegrating Administered 06/13/21 12:22 Dose 4 mg .ROUTE .STK-MED ONE - Progress Progress: improved, pain not gone completely Progress Note: 06/13/21 13:19 Chest x-ray shows no pneumothorax and no acute cardiopulmonary process. No evidence of rib fractures. X-rays of left ribs shows no acute cardiopulmonary process and no evidence of rib fractures. Counseled pt/family regarding: diagnosis, need for follow-up, rad results - Departure Departure Disposition: Home Clinical Impression: Fall with injury, Contusion of rib on left side Condition: Stable Critical Care Time: No Referrals: BLOSSOM SINGH MD [Primary Care Provider] - Follow up/PCP as directed Additional Instructions: Ice pack to area 3 times a day for the next 48 hours. Add ibuprofen 600 mg orally with food 3 times a day for the next 4 days. Follow-up with your primary care physician for further management. Prescriptions: Oxycodone HCl/Acetaminophen [Percocet 5-325 mg Tablet] 1 each PO Q8H PRN PRN #6 tablet MDD 3 PRN Reason: Moderate To Severe Pain Orphenadrine Citrate 100 mg [Norflex 100 MG Tablet] 100 mg PO BID #10 tab
[2021-06-13] MEDS ORDERED: Hydromorphone 1 mg/ml Injection IM ONE (12:10)
[2021-06-13] MEDS ORDERED: ZOFRAN ODT 4 MG PO ONE (12:11)
[2021-06-13] MEDS ORDERED: Ativan 2 MG/1 ML VIAL IM ONE (12:11)
[2021-06-13] MEDS ORDERED: ZOFRAN ODT 4 MG ONE (12:21)
[2021-06-13] MEDS ORDERED: Ativan 2 MG/1 ML VIAL ONE (12:21)
[2021-06-13] MEDS ORDERED: Hydromorphone 1 mg/ml Injection ONE (12:22)
[2021-06-13 13:04] VITALS: BP 142/74; PULSE 104; O2SAT 97
--- NOTE | 2021-06-13 18:56 | XRAY ---
Indication: Left rib pain following fall. Comparison: March 01, 2019. PA/lateral chest remains clear. Heart not enlarged. Bony thorax intact again with mild degenerative changes. No new/acute findings.
--- NOTE | 2021-06-13 18:56 | XRAY ---
Indication: Left rib pain following fall. Comparison: None 2 view left ribs demonstrates osteopenia, mild left acromioclavicular degenerative arthropathy, and mild multilevel degenerative spondylosis. No other bony, articular, or soft tissue abnormalities.
== END 2021-06-13 13:45 | disposition home or self-care (01) ==
LOC: ED 12:02
DX: S20.212A Contusion of left front wall of thorax, initial encounter (principal); W00.0XXA Fall on same level due to ice and snow, initial encounter; Y93.01 Activity, walking, marching and hiking; E78.5 Hyperlipidemia, unspecified; I10 Essential (primary) hypertension; Z79.891 Long term (current) use of opiate analgesic; Z79.899 Other long term (current) drug therapy
CPT/HCPCS: 71046; 71100; 96372; 99284; J1170; J2060; Q0162